=== PATIENT | male | born 2000 | race Caucasian/White ===

== ENCOUNTER 2020-09-22 12:57 | Outpatient (REF) | payer OTHER, SELFPAY | END 2020-09-22 12:58 | disposition home or self-care (01) | LOC: HO.LAB 12:57 | PROVIDERS: Visit Provider Internal Medicine | DX: Z20.822 Contact with and (suspected) exposure to COVID-19 (principal) | CPT/HCPCS: C9803; U0003; U0005 ==

== ENCOUNTER 2023-07-05 16:37 | Emergency (ER) | payer OTHER, SELFPAY ==
--- NOTE | 2023-07-05 16:44 | ED.GENADULT ---
HPI - General Adult General Chief complaint: Ear Problems Stated complaint: ear clogged x4 days Time Seen by Provider: 07/05/23 16:51 Source: patient Mode of arrival: ambulatory Limitations: no limitations History of Present Illness ED Provider: Saurabh BREWER HPI narrative: 22 year old male presents w/ left ear pain x few days. Reprots it started after getting watter in his ear. It feels clogged. No headache, ear d/c, ringing in ear, recent illness, fevers, chills, vision changes, cp, sob.. Related Data Previous Rx's ?Medication ?Instructions ?Recorded carbamide peroxide 6.5 % ear drops 5 drp otic (ear) left Q12H 4 days 07/05/23 (Debrox) #15 mL ciprofloxacin 0.3 %-dexamethasone 4 drp otic (ears) BID 7 days #7.5 07/05/23 0.1 % ear drops,suspension mL (Ciprodex) Allergies Allergy/AdvReac Type Severity Reaction Status Date / Time No Known Allergies Allergy Verified 07/05/23 16:46 Review of Systems Review of Systems: Yes all other systems are reviewed and are negative [facility] Past Medical History Attestation statement: The following information was validated with the patient. Source: old records reviewed and nursing notes reviewed Social History Social History Advance Directives: No Advance Directives Information Provided: No Physical Exam ED Vital Signs: Vital Signs - 24 hr 07/05/23 16:45 Temperature 98.5 F Pulse Rate 72 Respiratory Rate 16 Blood Pressure 103/49 L Pulse Oximetry 97 Oxygen Delivery Method Room Air BMI result Body Mass Index 19.8 vss Appearance: Alert.? Oriented X3.? No acute distress.? Head: Normocephalic, atraumatic, no step-offs or deformities Eyes: Pupils equal, round and reactive to light.? ENT: Pharynx normal.??External ears normal, TMs normal bilaterally and EAC's normal there is moderate amount of cerumen b/l ( removed w/ curette) . + pain with manipulation of external L ear no pain w/ manipulation of right ear. No mastoid tenderness. Neck: Normal inspection.? Neck supple.? CVS: Normal heart rate and rhythm.? Pulses normal.? Respiratory: No respiratory distress.? Breath sounds normal.? Abdomen: Soft and nontender.? Skin: Skin warm and dry.? Normal skin color.? Normal skin turgor.? Extremities: No lower extremity edema.? No calf ttp. 5/5 strength to bilateral upper and lower extremities Neuro: Oriented X 3.? No motor deficit.? No sensory deficit. CN 2-12 intact Course Course Course Narrative: This is an RME done by RACHAEL Lemus: Additional HPI, ROS, PE not included below will be deferred to primary provider. 22 year old male with no known pmh presents with complaint of left ear clogged x 4 days and pain. He states this has happened previously with wax. Appearance: Alert.? Oriented X3.? No acute cardiopulmonary distress distress.? Head: Normocephalic, atraumatic, no step-offs or deformities ENT: Pharynx normal.??External ears normal, TMs normal bilaterally and EAC's normal. No pain with manipulation of external ears bilaterally. No mastoid tenderness.? CVS: Pulses normal.? Respiratory: No respiratory distress.? Abdomen: Soft and nontender.? Skin: ? Normal skin color. Neuro: Oriented X 3.? No motor deficit.? No sensory deficit. Reevaluation(s) Reevaluation #1: moderate amout of cerumen removed. Educated patient on diagnosis and treatment plan, answered all question, patient verbalizes understanding. At this time patient will be discharged home, advised to return with new or worsening symptoms. Educated on worrisome signs and symptoms and when to return. At this time I feel comfortable discharge home. Time: 17:03 Medical Decision Making Medical Decision Making [facility] Narrative: 1700 22 yo m presents w/ l ear discomfort Pharynx normal.??External ears normal, TMs normal bilaterally and EAC's normal there is moderate amount of cerumen b/l ( removed w/ curette) . + pain with manipulation of external L ear no pain w/ manipulation of right ear. No mastoid tenderness. Concerns for cerumen impaction and otitis externa of r ear. No mastoiditis or OM noted. Plan- removal w/ currette and dc home Differential Diagnosis Differential Diagnoses: The differential diagnosis associated with the presentation includes Concerns for cerumen impaction and otitis externa of r ear. No mastoiditis or OM noted. Admission/Observation Consideration of admission/observation: Escalation of care including admission/observation considered Prescription Management I considered prescription management with: Antibiotic Critical Care Time Critical Care Time Critical Care Time: No Discharge Plan Discharge Clinical Impression: Otitis externa, Cerumen impaction Patient Disposition: Home, Self-Care Instructions: Otitis Externa (ED) Additional Instructions: Take your medications as prescribed. If you were prescribed antibiotics today, it is important that you take your medication to their entirety, do not skip any doses, do not finish them early. Follow-up with your primary care provider this week. Return to the emergency department with new or worsening symptoms. In case of emergency call 911 Prescriptions: New Debrox 6.5 % drops 5 drp otic (ear) left Q12H 4 Days Qty: 15 0RF ciprofloxacin-dexamethasone [Ciprodex] 0.3-0.1 % drops,suspension 4 drp otic (ears) BID 7 Days Qty: 7.5 0RF Referrals: Physician,Unknown J [Primary Care Provider] - 2 days Stand Alone Forms: Work/School Release Discharge Date/Time: 07/05/23 16:59 Print Language: French
[2023-07-05 16:45] VITALS: BP 103/49; PULSE 72; RESP 16; TEMP 36.9; O2SAT 97; BMI 19.8
== END 2023-07-05 17:00 | disposition home or self-care (01) ==
PROVIDERS: Emergency Provider Emergency Medicine Emergency Medical Services
DX: H61.23 Impacted cerumen, bilateral (principal); H60.92 Unspecified otitis externa, left ear; H92.02 Otalgia, left ear
CPT/HCPCS: 69209; 99281; 99283

== ENCOUNTER 2023-07-08 17:16 | Emergency (ER) | payer OTHER, SELFPAY ==
[2023-07-08 17:33] VITALS: BP 129/81; PULSE 61; RESP 20; TEMP 36.4; O2SAT 100; BMI 26.6
--- NOTE | 2023-07-08 17:33 | ED_ITS ---
HPI - General Adult General Chief complaint: Ear Problems Stated complaint: Ear and throat pain Time Seen by Provider: 07/08/23 18:21 Source: patient Mode of arrival: ambulatory Limitations: no limitations History of Present Illness ED Provider: Samuel Burch PA-C HPI narrative: 22-year-old male presents the ER for evaluation of bilateral cerumen impaction. He was seen here last week, had some earwax removed with a curette. He was discharged with antibiotics and Debrox drops. He states he has been using them with minimal relief. Reports hearing loss on the left ear. No drainage. He reports intermittent tinnitus in the left ear as well. No headache, no dental pain, no fever or chills. 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 MD complaint: Hearing loss, cerumen impaction Onset (ago): day(s) Location: head Radiation: non-radiation Severity: moderate Quality: aching Pain Consistency: intermittent Relieving factors: none Exacerbating factors: none Associated symptoms: denies other symptoms Treatments prior to arrival: other (Ear drops) Related Data Previous Rx's ?Medication ?Instructions ?Recorded carbamide peroxide 6.5 % ear drops 5 drp otic (ear) left Q12H 4 days 07/05/23 (Debrox) #15 mL ciprofloxacin 0.3 %-dexamethasone 4 drp otic (ears) BID 7 days #7.5 07/05/23 0.1 % ear drops,suspension mL (Ciprodex) Allergies Allergy/AdvReac Type Severity Reaction Status Date / Time No Known Allergies Allergy Verified 07/08/23 17:34 Review of Systems Review of Systems: Yes all other systems are reviewed and are negative [facility] Social History Social History Advance Directives: No Advance Directives Information Provided: Yes Do you have a plan to hurt others: No Plan Physical Exam ED Vital Signs: Vital Signs - 24 hr 07/08/23 17:33 07/08/23 20:31 Temperature 97.6 F 97.7 F Pulse Rate 61 61 Respiratory Rate 20 16 Blood Pressure 129/81 130/73 Pulse Oximetry 100 99 Oxygen Delivery Method Room Air Room Air BMI result Body Mass Index 26.6 Appearance: Alert. Oriented X3. No acute distress. HEENT: normal external inspection. No mastoid erythema or tenderness. Bilateral external auditory canals are blocked with dark, hardened cerumen, unable to visualize either tympanic membrane. CVS: Normal heart rate and rhythm. Pulses normal. Respiratory: No respiratory distress. Skin: Skin warm and dry. Normal skin color. Normal skin turgor. No rashes. Extremities: Grossly normal x4, no joint swelling. Neuro: Oriented X 3. No motor deficit. No sensory deficit. Course Course Course Narrative: This is a Rapid Medical Examination (RME) performed by Samuel Burch PA-C in triage. Full HPI, ROS, assessment and treatment plan per primary provider in the Main ED. 22-year-old male presents the ER for evaluation of worsening left ear pain and reported cerumen impaction. Patient was seen here on 07/04, there was a moderate amount of cerumen bilaterally, which was removed with a curette. Patient was discharged with topical antibiotics for probable otitis externa of the right ear as well. Patient has been using the antibiotic drops and Debrox drops with no improvement. Exam consistent with bilateral cerumen impaction, right greater than left. Plan: Colace for cerumenolytic, attempt to irrigate for symptomatic relief Medications Administered Discontinued Medications Generic Name Dose Route Start Last Admin Trade Name Freq PRN Reason Stop Dose Admin Docusate Sodium 100 mg 07/08/23 17:35 07/08/23 18:30 Docusate Sodium 100 Mg/10 Ml Liquid PO 07/08/23 17:36 100 mg ONCE ONE Administration Procedures Ear Wax Removal Both Ears: Cerumenolytic Used: Colace Results: Re-examined: cerumen removed completely TM Examination: TM(s) intact, normal appearance Ear Canal Exam: atraumatic Patient Tolerated Procedure: well and no complications Complications: no problems Technique: ear canal irrigated and ear canal curetted Medical Decision Making Medical Decision Making MDM Narrative: 22-year-old presenting for bilateral cerumen impaction. Exam is consistent with this. Colace was placed into both ears as a cerumen lytic with good effect and ears were irrigated with complete resolution. Normal-appearing tympanic membranes bilaterally. No evidence of infection or perforation. Patient is stable for discharge home. Counseled on further management. Differential Diagnosis Differential Diagnoses: The differential diagnosis associated with the presentation includes Cerumen impaction, otitis media, otitis externa, Meniere's disease External Record Review External record reviewed: Outpatient record, Prior outpatient labs and Prior ou tpatient radiology Prescription Management I considered prescription management with: Pain Medication and Antibiotic Critical Care Time Critical Care Time Critical Care Time: No Discharge Plan Discharge Clinical Impression: Bilateral impacted cerumen Patient Disposition: Home, Self-Care Instructions: Carbamide Peroxide (Into the ear) Additional Instructions: stop the antibiotic drops you can continue debrox drops as needed for ear wax build up stop using ear plugs If you develop new or worsening symptoms call 911 or come back to the ER for further evaluation. Prescriptions: No Action Debrox 6.5 % drops 5 drp otic (ear) left Q12H 4 Days Qty: 15 0RF ciprofloxacin-dexamethasone [Ciprodex] 0.3-0.1 % drops,suspension 4 drp otic (ears) BID 7 Days Qty: 7.5 0RF Interventions: ED Discharge Assessment Last Done: 07/08/23 20:31 Discharge Date/Time: 07/08/23 20:32 Print Language: Cypriot
[2023-07-08] MEDS: Docusate Sodium 100 MG/10 ML LIQUID PO (18:30)
--- NOTE | 2023-07-08 18:32 | PC.NURSE ---
pt medicated per order in left ear
--- NOTE | 2023-07-08 19:02 | PC.NURSE ---
provider irrogating patients ear
[2023-07-08 20:31] VITALS: BP 130/73; PULSE 61; RESP 16; TEMP 36.5; O2SAT 99
== END 2023-07-08 20:32 | disposition home or self-care (01) ==
PROVIDERS: Emergency Provider Emergency Medicine
DX: H93.12 Tinnitus, left ear (principal); H61.23 Impacted cerumen, bilateral
CPT/HCPCS: 69210; 99282; 99283